=== PATIENT | female | born 2005 | race Caucasian/White ===

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

== ENCOUNTER 2024-01-11 06:49 | Emergency (ER) | payer MEDICAID, OTHER ==
[2024-01-11 07:39] LABS: BILIRUBIN,URINE NEGATIVE (NEGATIVE); GLUCOSE, URINE (UA) NEGATIVE (NEGATIVE); KETONES,URINE (UA) >=80 mg/dL (NEGATIVE); LEUKOCYTE ESTERASE, URINE SMALL (NEGATIVE); NITRITE,URINE NEGATIVE (NEGATIVE); OCCULT BLOOD,URINE TRACE-INTA (NEGATIVE); PROTEIN,URINE 30 mg/dL (NEGATIVE); UROBILINOGEN,URINE 0.2 (NORMAL) E.U./dL (NORMAL)
[2024-01-11 07:40] LABS: CLARITY,URINE HAZY (CLEAR)
[2024-01-11 07:51] LABS: BACTERIA,URINE Few /HPF (None Seen); MUCUS,URINE Moderate Strands; RBC,URINE None Seen /HPF (0-5); SQUAMOUS EPITHELIAL CELL,UR MANY Squamous (<= Few)
[2024-01-11] MEDS: ONDANSETRON 4 MG/2 ML VIAL IVP STA ×2 (07:51→10:18)
[2024-01-11] MEDS: SODIUM CHLORIDE 0.9% 1,000 ML IV STA (07:52)
[2024-01-11] MEDS: KETOROLAC 15 MG/ML VIAL IVP STA (07:52)
[2024-01-11 07:53] LABS: BASOPHILS % (AUTO) 0.2 %; EOSINOPHILS % (AUTO) 0.1 %; HCT - HEMATOCRIT 46.5 % (37.0-47.0); HGB - HEMOGLOBIN 16.4 g/dL (12.0-16.0); LYMPHOCYTES # (AUTO) 0.5 10^3/uL (1.5-3.5); LYMPHOCYTES % (AUTO) 2.8 %; MEAN CORPUSCULAR HEMOGLOBIN 32.5 pg (27.0-31.0); MEAN CORPUSCULAR HGB CONC 35.3 g/dL (32.0-36.0); MEAN CORPUSCULAR VOLUME 92.3 fL (81.0-99.0); MEAN PLATELET VOLUME 10.9 fL (7.9-10.8); MONOCYTES # (AUTO) 0.9 10^3/uL (0.0-1.0); MONOCYTES % (AUTO) 5.1 %; NEUTROPHILS % (AUTO) 91.5 %; PLT - PLATELET COUNT 307 10^3/uL (130-450); RED BLOOD COUNT 5.04 10^6/uL (4.20-5.40); RED CELL DISTRIBUTION WIDTH 11.6 % (12.0-15.0); WHITE BLOOD COUNT 18.5 x10^3/uL (4.8-10.8)
--- NOTE | 2024-01-11 08:01 | ED Physician Documentation ---
PD HPI NVD - Stated complaint Stated Complaint: VOMITING - Chief complaint Chief Complaint: Abd Pain - History obtained from History obtained from: Patient, Family - Additonal information Additional information: Patient is a 18-year-old female presenting for evaluation of nausea, vomiting and diarrhea starting at 3:00 this morning. Patient has had a number of episodes of emesis and loose watery stools. No blood in emesis or stools. No known sick contacts. Grandmother is at the bedside and states that no one else in the house is ill with similar symptoms. Grandparents have had cough/cold-like symptoms. They also ate the same food last night and no one else has vomiting or diarrhea. This morning patient also reported having generalized abdominal pain which concerned grandmother prompting her to come to the emergency department. Patient does vape and also uses cannabis although has not used in the last 24 hours.No reported fevers. No dysuria. Review of Systems Constitutional: denies: Fever Cardiac: denies: Chest pain / pressure Respiratory: denies: Dyspnea GI: reports: Abdominal Pain, Nausea, Vomiting, Diarrhea. denies: Bloody / black stool : denies: Dysuria PD PAST MEDICAL HISTORY - Past Medical History Past Medical History: Yes Cardiovascular: None Respiratory: None Neuro: None Endocrine/Autoimmune: None GI: None ENGINEERING VICE PRESIDENT: None : None HEENT: None Psych: Depression, Anxiety Musculoskeletal: None - Past Surgical History Past Surgical History: No - Present Medications Home Medications: Ambulatory Orders Medication Instructions Recorded Confirmed Ondansetron Odt [Zofran] 4 mg TL Q6H PRN #10 tablet 01/11/24 - Allergies Allergies/Adverse Reactions: Allergies Allergy/AdvReac Type Severity Reaction Status Date / Time No Known Drug Allergies Allergy Verified 01/11/24 07:17 - Social History Does the pt smoke?: No Smoking Status: Never smoker Does the pt drink ETOH?: No Does the pt have substance abuse?: Yes Substance Use and Type: Marijuana - Immunizations Immunizations are current?: Yes - POLST Patient has POLST: No PD ED PE NORMAL - General General: Alert and oriented X 3, No acute distress, Well developed/nourished - HEENT HEENT: Atraumatic, Moist mucous membranes, Pharynx benign - Neck Neck: Supple, no meningeal sign - Cardiac Cardiac: Other (Tachycardic, regular rhythm) - Respiratory Respiratory: No respiratory distress, Clear bilaterally - Abdomen Abdomen: Normal bowel sounds, Soft, Non tender, Non distended - Derm Derm: Warm and dry - Neuro Neuro: Normal speech Results - Vitals Vitals: Vital Signs - 24 hr 01/11/24 01/11/24 01/11/24 07:17 09:22 11:00 Temperature 36.1 C L Heart Rate 109 H 81 81 Respiratory 24 16 16 Rate Blood Pressure 111/75 106/77 125/72 O2 Saturation 100 100 100 01/11/24 12:04 Temperature Heart Rate 72 Respiratory 14 Rate Blood Pressure 116/78 O2 Saturation 98 Oxygen O2 Source Room air - Labs Labs: Laboratory Tests 01/11/24 01/11/24 01/11/24 07:30 07:40 07:45 WBC 18.5 H RBC 5.04 Hgb 16.4 H Hct 46.5 MCV 92.3 MCH 32.5 H MCHC 35.3 RDW 11.6 L Plt Count 307 MPV 10.9 H Neut # (Auto) 17.0 H Lymph # (Auto) 0.5 L Wood # (Auto) 0.9 Eos # (Auto) 0.0 Baso # (Auto) 0.0 Absolute Nucleated RBC 0.00 Nucleated RBC % 0.0 Sodium Potassium Chloride Carbon Dioxide Anion Gap BUN Creatinine Estimated GFR (MDRD) Glucose Calcium Total Bilirubin AST ALT Alkaline Phosphatase Total Protein Albumin Globulin Albumin/Globulin Ratio Lipase Urine Color DARK YELLOW Urine Clarity HAZY Urine pH 8.0 H Ur Specific Lavina 1.020 Urine Protein 30 H Urine Glucose (UA) NEGATIVE Urine Ketones >=80 H Urine Occult Blood TRACE-INTA Urine Nitrite NEGATIVE Urine Bilirubin NEGATIVE Urine Urobilinogen 0.2 (NORMAL) Ur Leukocyte Esterase SMALL H Urine RBC None Seen Urine WBC 4-5 Ur Squamous Epith Cells MANY Squamous H Urine Bacteria Few Urine Mucus Moderate Strands Ur Microscopic Review INDICATED Urine Culture Comments NOT INDICATED Urine HCG, Qual NEGATIVE 01/11/24 07:45 WBC RBC Hgb Hct MCV MCH MCHC RDW Plt Count MPV Neut # (Auto) Lymph # (Auto) Wood # (Auto) Eos # (Auto) Baso # (Auto) Absolute Nucleated RBC Nucleated RBC % Sodium 136 Potassium 4.1 Chloride 102 Carbon Dioxide 22 Anion Gap 12.0 BUN 18 Creatinine 0.8 Estimated GFR (MDRD) 92 Glucose 191 H Calcium 10.0 Total Bilirubin 0.7 AST 27 ALT 10 Alkaline Phosphatase 63 Total Protein 7.8 Albumin 4.7 Globulin 3.1 Albumin/Globulin Ratio 1.5 Lipase 17 Urine Color Urine Clarity Urine pH Ur Specific Lavina Urine Protein Urine Glucose (UA) Urine Ketones Urine Occult Blood Urine Nitrite Urine Bilirubin Urine Urobilinogen Ur Leukocyte Esterase Urine RBC Urine WBC Ur Squamous Epith Cells Urine Bacteria Urine Mucus Ur Microscopic Review Urine Culture Comments Urine HCG, Qual PD Medical Decision Making - ED course Complexity details: reviewed results, re-evaluated patient, d/w patient, d/w family ED course: Patient is a 18-year-old female presenting for evaluation of nausea, vomiting and diarrhea starting suddenly this morning with abdominal pain. She is dry heaving and retching on initial examination. Has generalized tenderness. Labs obtained which include a white count of 18,000 and a glucose of 191. On reevaluation she reports feeling better after Toradol, and Zofran and fluids but does still have lower abdominal tenderness and is tender in the right lower quadrant. Given her elevated white count I did feel it prudent to obtain imaging. Given her low BMI I did obtain a CT scan with IV and p.o. contrast. A normal appendix was visualized. Her nausea Returned after patient had drink the p.o. contrast and had had a significant amount of ice chips. She was given another dose of Zofran. She additionally required a dose of droperidol 1.25 mg. I question whether some of her symptoms could be related to cannabis use as she does report using frequently. Discussed continued supportive care as well as concerning symptoms to return for. She is feeling better here after the droperidol. 0815 - Patient appears improved but does have right lower quadrant tenderness on exam. She states that this is the area that it hurts mostly in. Does not have pain at lower down in the pelvis to suggest ovarian pathology. Given elevated white count and area of tenderness recommend CT scan which patient is agreeable to. Patient does not appear to have much intra-abdominal adipose and has a BMI less than 21 so I have ordered CT with p.o. contrast. Departure - Departure Disposition: 01 Home, Self Care Clinical Impression: Nausea vomiting and diarrhea, Hyperglycemia, Abdominal pain Condition: Stable Instructions: ED Abdominal Pain Female Non-Specific Abdominal Pain, ED Diet Vomiting Diarrhea Prescriptions: Ondansetron Odt [Zofran] 4 mg TL Q6H PRN #10 tablet PRN Reason: Nausea / Vomiting Comments: Your white blood cell count was mildly elevated which could be from inflammation. Your blood glucose was also 191 which I would consider high if you have not recently been eating or drinking anything. I do think you should have some close follow-up with your primary care provider regarding your blood sugar. I have sent a prescription for antinausea medication to [facility] in [place]. Your CT scan shows a normal appendix. Continue with the ibuprofen or acetaminophen as needed for aches and pains. Start with a bland diet today. Return to the ER with any worsening symptoms. Forms: PCP List Discharge Date/Time: 01/11/24 11:55
[2024-01-11 08:03] LABS: HCG UR QUAL NEGATIVE
[2024-01-11 08:07] LABS: ALBUMIN 4.7 g/dL (3.2-5.5); BILIRUBIN,TOTAL 0.7 mg/dL (0.2-1.0); POTASSIUM 4.1 mmol/L (3.5-4.5)
[2024-01-11 08:13] LABS: ALBUMIN/GLOBULIN RATIO 1.5 (1.0-2.2); CREATININE 0.8 mg/dL (0.6-1.3); TOTAL PROTEIN 7.8 g/dL (6.4-8.9)
[2024-01-11] MEDS ORDERED: DIATRIZOATE MEGLU/DIATRIZO SOD 30 ML BOTTLE PO ONE (08:30)
[2024-01-11] MEDS ORDERED: iohexoL-300 100 ML VIAL ONE (08:30)
[2024-01-11] MEDS: iohexoL-300 100 ML VIAL IVP ONE (09:41)
[2024-01-11] MEDS: DIATRIZOATE MEGLU/DIATRIZO SOD 30 ML BOTTLE PO ONE (09:41)
--- NOTE | 2024-01-11 09:57 | CT Report ---
PROCEDURE: Abdomen/Pelvis W INDICATIONS: RLQ pain/vomiting/WBC 18 TECHNIQUE: Helical axial CT of the abdomen and pelvis was obtained after intravenous contrast adminis tration and reformatted in multiple planes. Radiation dose reduction was achieved using automated exp osure control or adjustment of mA and/or kV according to patient size. COMPARISON: 07/26/2019 FINDINGS: Lower thorax: The lung bases are clear. Heart size normal. No hiatal hernia. Liver: Normal in size and attenuation. No contour deformity present. Biliary system: No calcified cholelithiasis or pericholecystic inflammation. No evidence of bile du ct dilatation. Pancreas: Unremarkable without mass or inflammation evident. Spleen: Normal in size and density. Adrenals: Normal morphology and density. Reproductive system: Unremarkable as visualized. Urinary system: Normal renal size and attenuation. No renal calculi, hydronephrosis, or solid mass p resent. Urinary bladder unremarkable. Gastrointestinal system: The bowel appears unremarkable with no evidence of bowel obstruction or inf lammation. The stomach appears unremarkable. Mild gastric wall thickening primarily involving the ga stric antrum noted. No obstruction. Appendix: Normal appendix identified Peritoneal spaces: No mesenteric or retroperitoneal adenopathy. No free air. No free fluid. Vasculature: The IVC, aorta and iliac vasculature are unremarkable. Abdominal wall: Abdominal wall is intact without evidence of ventral or inguinal hernias. Musculoskeletal: Normal bone mineralization. No acute fractures. IMPRESSION: Normal appendix identified. No evidence of appendicitis. Mild antral gastric wall thickening. Differential would include mild gastritis versus normal peristal tic contractions. Reviewed by: Guillermo Aragon MD on 01/11/2024 8:56 AM [facility] [[email or web address]] Approved by: Guillermo Aragon MD on 01/11/2024 8:56 AM [facility] [[email or web address]] Station ID: [id number]
[2024-01-11] MEDS: DROPERIDOL 5 MG/2 ML VIAL IVP STA (11:21)
[2024-01-11 12:12] VITALS: BP 116/78; O2SAT 98
== END 2024-01-11 11:55 | disposition home or self-care (01) ==
LOC: ED 06:49
DX: R73.9 Hyperglycemia, unspecified (principal); R11.2 Nausea with vomiting, unspecified; R10.9 Unspecified abdominal pain
CPT/HCPCS: 36415; 74177; 80053; 81001; 81025; 83690; 85025; 96361; 96374; 96375; 96376; 99283; 99284; Q9963; Q9967; 81003; 87086

== ENCOUNTER 2024-02-18 08:00 | Outpatient (CLI) | payer MEDICAID ==
--- NOTE | 2024-02-18 14:59 | XRAY Report ---
PROCEDURE: Wrist 4 View RT INDICATIONS: RIGHT WRIST PAIN TECHNIQUE: 4 views of the wrist were acquired. COMPARISON: 09/19/2019 FINDINGS: Bones: No displaced fracture or dislocation. No high-grade degenerative changes. Soft tissues: No suspicious calcifications. IMPRESSION: No acute radiographic abnormality. If there is high concern for further derangement, consider MRI barrett luation. Reviewed by: Ryley Barrera MD on 02/18/2024 2:58 PM PDT Approved by: Ryley Barrera MD on 02/18/2024 2:58 PM PDT Station ID: [id number]
== END 2024-02-18 23:59 | disposition home or self-care (01) ==
LOC: DI.WOS 08:00
PROVIDERS: ATTEND Physician Assistant Surgical
DX: M25.531 Pain in right wrist (principal)